=== PATIENT | female | born 1960 | race African-American/Black ===

== ENCOUNTER 2020-01-20 11:28 | Inpatient (IN) | payer OTHER ==
[~2020-01-20] VITALS: Ht 170.2 cm; Wt 49.7 kg
--- NOTE | ~2020-01-20 | O ---
[facility] [place] [address] OPERATIVE REPORT Name: DENNIS SALMERON Room #: 450-P [facility] IN M.R.#: [id number] Admission: 01/20/20 Attend Phys: Kinza Hamilton MD Discharge: Date of : 64 Report #: [id number] THIS REPORT FOR: cc: TONY Vera family physician/PCP TONY - Jody family physician/PCP Ludivina Solitario MD FACS ~ CC: Kinza JIMENEZ physician/PCP DATE OF SERVICE: 01/23/2020 PREOPERATIVE DIAGNOSES: 1. Severe protein-calorie malnutrition. 2. Intractable nausea and vomiting with intermittent intolerance to p.o. intake. 3. History of previous jejunostomy tube placement, now status post accidental removal and complete healing of her G-tube tract. 4. Unsuccessful attempts at percutaneous replacement by Interventional Radiology. POSTOPERATIVE DIAGNOSES: 1. Severe protein-calorie malnutrition. 2. Intractable nausea and vomiting with intermittent intolerance to p.o. intake. 3. History of previous jejunostomy tube placement, now status post accidental removal and complete healing of her G-tube tract. 4. Unsuccessful attempts at percutaneous replacement by Interventional Radiology. PROCEDURE PERFORMED: Laparoscopic-assisted placement of a jejunostomy tube placement. SURGEON: Ludivina Solitario MD THIRD SHIFT LIEUTENANT: JAY Le. ANESTHESIA: General endotracheal anesthesia. ESTIMATED BLOOD LOSS: Minimal (less than 5 mL). COMPLICATIONS: None appreciated. SPECIMENS: None. INDICATIONS: The patient is a 59-year-old -[place] female who initially underwent a laparoscopic sleeve gastrectomy, which was subsequently converted to [facility] [address] [place] [address] OPERATIVE REPORT Name: DENNIS SALMERON Room #: 450-P [facility] IN .R.#: [id number] Admission: 01/20/20 Attend Phys: Kinza Hamilton MD Discharge: Date of : 64 Report #: [id number] a Nitza-en-Y gastric bypass by another surgeon. The patient presented to [facility] with a longstanding history of intolerance to p.o. intake with severe protein-calorie malnutrition and after multiple providers were involved in her care, it was recommended for a jejunostomy tube placement. No gastrostomy tube could be placed due to the lack of gastric remnant since her bariatric procedure was converted from a sleeve gastrectomy to a Nitza-en-Y gastric bypass. After thorough consultation with the patient, she did undergo a laparoscopic-assisted jejunostomy tube placement that was uncomplicated and the patient did well. Unfortunately, approximately 3 months postoperatively, the patient had her jejunostomy tube fall out and when instructed to present for replacement, she delayed presentation for 2-3 weeks, thereby allowing her jejunostomy tube tract to completely epithelialize and close off. Multiple attempts by Interventional Radiology have been attempted all to no avail, and after thorough consultation once again, indication was for replacement laparoscopically today. The assistance of my nurse practitioner was paramount to the safe and successful completion of the procedure as she provided excellent retraction and exposure throughout the entirety of the case at a level that was well above a surgical lead. No qualified upper level resident assistance was available. DESCRIPTION OF PROCEDURE: After explaining the risks, benefits and alternatives of the procedure with the patient in detail and obtaining consent, the patient was brought to the operating room and placed supine on the operating room table. After conducting a thorough timeout procedure verifying correct patient and procedure, the patient was given general endotracheal anesthesia. Once adequate anesthesia was obtained, her SCDs were hooked up to pneumatic compression device. She was given a preoperative dose of antibiotics in line with the SCIP protocol. The patient's abdomen was prepped and draped in standard surgical sterile fashion. 5 mL of 0.5% Marcaine with epinephrine were used to anesthetize the skin in the right upper quadrant midclavicular line in the subcostal location. A #15 bladed scalpel was used to create a small skin yao at this location. A 5 mm Visiport was placed over and a 0-degree 5 mm laparoscope was introduced through this incision site. Once intra-abdominal placement was verified visually, the obturator with the trocar and laparoscope were both removed and the abdomen was insufflated to 15 mmHg using carbon dioxide gas. The laparoscope was changed to a 5-mm 30-degree laparoscope, which was reintroduced through this trocar. The entire abdomen was evaluated to ensure no injury upon entry. I now placed an additional 5 mm port in right lower quadrant under direct vision after anesthetizing the skin at that location with 5 mL of 0.5% Marcaine with epinephrine and created another small skin yao using a #15 bladed scalpel. The patient had a wall of adhesions down her midline; however, there was a passageway into the left upper quadrant where there was a window in the adhesions; we were able to traverse the laparoscope from the left lower quadrant after removing and placing the right lower quadrant trocar through this window for full visualization of the left upper quadrant prior jejunostomy tube site. Using a laparoscopic grasper through the right [facility] [address] [place] [address] OPERATIVE REPORT Name: DENNIS SALMERON Room #: 450-P [facility] IN M.Maninder.#: [id number] Admission: 01/20/20 Attend Phys: Kinza Hamilton MD Discharge: Date of : 64 Report #: [id number] upper quadrant trocar, we were able to maneuver through this window as well to assist in bowel placement and when the appropriate site was selected, a #15 bladed scalpel was used to create a 1 cm skin incision at the prior jejunostomy tube site. An 18-gauge needle was now placed through this tract directly into the loop of jejunum that was tenuously tethered to the abdominal wall. A wire was placed down this needle and intraluminal access was obvious as we could see it through the laparoscope. The needle was removed and a 24-Taiwanese tear-away sheath and dilator was placed over the wire and directed through this tract into the bowel lumen with care taken not to puncture through the bowel wall. When the tip of the tear-away sheath was in the bowel lumen, the dilator was removed along with the wire and a 20-Taiwanese balloon-tipped jejunostomy tube was placed down the tear-away sheath. Once the balloon tip of the tube was through the end of the dilator and we could identify this laparoscopically within the bowel lumen, the tear-away sheath was peeled away and the balloon was inflated with 6 mL of sterile water. This was obvious within the bowel lumen as well. Flushing the tube with 20 mL of normal saline showed distention of the bowel distally to distal to the tip of the tube, thereby confirming proper placement with no bleeding or spillage. As the bowel was tethered to the abdominal wall, no suturing was necessary at this juncture. I used a 2-0 nylon to close the skin incision up next to the tube and then passed this through the external flange of the tube where I then proceeded to tie it around the tube to anchor it into position. After I tied it down, I did flush the tube once again showing an easy flow again witnessed within the bowel lumen. Hemostasis was assured. The abdomen was fully desufflated. All trocars were removed under direct vision. A 4-0 Monocryl was used in a standard subcuticular fashion for skin and Dermabond glue was applied to the skin wound. At the end of the procedure, all instrument, needle and sponge counts were correct. The patient tolerated the procedure without incident, was awakened in the operating room, transitioned to the recovery room in stable condition with no apparent complications. By: [id number] Ludivina Solitario MD, FACS /nt
[2020-01-20 11:29] VITALS: BP 113/69
[2020-01-20 15:36] LABS: ABSOLUTE NEUTROPHILS 5.7 thou/uL (1.4-8.2); BASOPHILS 0.6 % (0.0-2.0); EOSINOPHILS 0.7 % (0.0-3.0); HEMATOCRIT 37.3 % (37.0-47.0); HEMOGLOBIN 12.2 gm/dL (12.0-15.0); LYMPHOCYTES 28.5 % (24.0-44.0); MCH 31.7 pg (26.0-34.0); MCHC 32.8 g/dL (28.0-37.0); MCV 96.7 fL (80.0-100.0); MONOCYTES 8.9 % (1.0-8.0); PLATELET COUNT 496 thou/uL (150-400); POLYS 61.3 % (36.0-66.0); RBC 3.85 mil/uL (4.20-5.00); RDW 17.2 % (10.5-14.5); WBC 9.4 thou/uL (4.0-11.0)
[2020-01-20 15:52] LABS: CALCIUM 9.1 mg/dL (8.5-10.1); CREATININE 0.8 mg/dL (0.6-1.0); POTASSIUM 3.5 mmol/L (3.5-5.1)
[2020-01-20 15:58] LABS: ALBUMIN 3.5 g/dL (3.4-5.0); TOTAL BILIRUBIN 0.3 mg/dL (0.2-1.0); TOTAL PROTEIN 7.7 g/dL (6.4-8.2)
[2020-01-20 20:13] VITALS: BP 105/42
[2020-01-20] MEDS ORDERED: NORCO 10-325 T1 EACH PO (20:16)
[2020-01-20] MEDS ORDERED: MORPHINE SULFAT15 MG PO (20:16)
[2020-01-20] MEDS ORDERED: LORAZEPAM 0.50.5 MG PO (20:17)
[2020-01-20] MEDS ORDERED: HYDROXYZINE HCL10 M2 PO (20:18)
[2020-01-20] MEDS ORDERED: GRALISE600 MG PO (20:18)
--- NOTE | 2020-01-20 20:46 | NUR ---
ATTEMPTED TO CALL REPORT TO 4W. NO ANSWER AT DESK.
[2020-01-20 21:16] VITALS: BP 99/42
[2020-01-20 21:40] VITALS: BP 116/62
--- NOTE | 2020-01-21 03:21 | NUR ---
pt arrived to unit approx 2130 from ER. pt alert and oriented x4, appropriate and cooperative. pt oriented to room. pt up to bathroom to void. pt with no more nausea and/or vomiting. pt given pain med as ordered. pt ate food before midnight, now NPO as instructed. pt appears to be sleeping soundly. call light in reach. will continue to monitor.
[2020-01-21 03:58] VITALS: BP 117/74
[2020-01-21 06:23] LABS: HEMOGLOBIN 10.5 gm/dL (12.0-15.0); MCH 31.9 pg (26.0-34.0); MCHC 32.9 g/dL (28.0-37.0); MCV 97.1 fL (80.0-100.0); RBC 3.3 mil/uL (4.20-5.00); WBC 7.3 thou/uL (4.0-11.0)
[2020-01-21 06:42] LABS: CALCIUM 8.3 mg/dL (8.5-10.1); CREATININE 0.8 mg/dL (0.6-1.0); MAGNESIUM 2.2 mg/dL (1.8-2.4); POTASSIUM 3.5 mmol/L (3.5-5.1)
[2020-01-21 09:50] VITALS: BP 119/64
[2020-01-21] MEDS ORDERED: ROCEPHIN 11 GM/1001 IV (10:33)
[2020-01-21] MEDS ORDERED: VANCOMYCIN1 GM/2002 IV (10:33)
--- NOTE | 2020-01-21 11:43 | NUR ---
ASSUMED CARE AT 0700. PATIENT IS ALERT AND ORIENTED X4. PATIENT FUENTES'S, CADDY PACKER ARE EQUAL. LUNGS ARE CLEAR. PATIENT ABD IS SOFT. IVF INFUSING AT 75 CC/HR. PER S.L. IN PATIENT'S LEFT AC. PATIENT IS NPO FOR I.R. TO PUT J TUBE BACK IN. DENIES PAIN AT THIS TIME. PATIENT IS UP AD YOMI. BS 85 BY LAB. I.R. TEAM HERE TO TAKE PATIENT IN HER BED. WILL REEVAL AFTER PROCEDURE.
--- NOTE | 2020-01-21 11:46 | NUR ---
0930 RETUREND FROM I.R. PROCEDURE FAILED. REMAINS NPO UNTIL SEEN BY SURG. CONTINUES ON IV FLUIDS D51/2 NS AT 75 CC/HR.
--- NOTE | 2020-01-21 11:47 | NUR ---
PATIENT DIET RESUMED PLAN FOR SURG ON 01/23/20 FOR J TUBE REPLACEMENT. C/O ABD PAIN. MEDICATED WITH MS04 IVP AT 0947 A.M. PATIENT GIVEN TOAST AND PEANUT BUTTER. PATIENT IS NOW NAUSATED. MEDICATED WITH PRN ANTI-EMETIC. WILL CONTINUE TO MONITER.
[2020-01-21 13:21] LABS: URINE BILIRUBIN NEGATIVE (Negative); URINE BLOOD NEGATIVE (Negative); URINE CLARITY CLEAR; URINE GLUCOSE-RANDOM* NEGATIVE (Negative); URINE KETONES NEGATIVE (Negative); URINE LEUKOCYTES-REFLEX NEGATIVE (Negative); URINE NITRITE-REFLEX NEGATIVE (Negative); URINE PROTEIN (DIPSTICK) TRACE (Negative); URINE SPECIFIC GRAVITY >= 1.030 (1.005-1.035); URINE UROBILINOGEN 0.2 E.U./dl (0.2-1.0)
[2020-01-21 13:23] LABS: URINE COLOR AMBER
--- NOTE | 2020-01-21 13:34 | NUR ---
Once PEJ replaced and able to use, recommend initiate Vital AF 1.2 @80mL/hr with 60mL water flushes q4hr. Administer feeds continuously x 12 hours from [id number].
[2020-01-21 14:33] VITALS: BP 110/58
--- NOTE | 2020-01-21 14:49 | NUR ---
PT ADMITTED RELATED TO INTRACTABLE VOMITING AND J TUBE FALLING OUT. CM REVIEWED CHART AND SPOKE WITH CARE TEAM. CM CALLED AND SPOKE WITH PT OVER THE PHONE THIS AM BUT PT WAS ANNOYED BECAUSE HER CELL PHONE WAS GOING TO AND SHE NEEDED TO GET SOME NUMBERS OFF IT AND ASKED THAT CM CALL BACK. CM CALLED BACK AND SHE INDICATED THAT SHE RESIDES IN AN APARTMENT WITH HER DTRS AND GRANDKIDS. SHE INDICATED THAT THERE ARE 4 STEPS TO ENTER AND NONE INSIDE. 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 PT INDICATED SHE OCCASIONALLY NEEDS ASSIST WITH ADLS. CM CALLED PT'S BACK TO SEE WHO SHE HAD ENTERAL TUBE FEEDING SUPPLIES THRUOUGH ACOUST[employer] AND SHE YELLED AT CM TO STOP CALLING AND WAKEING HER UP ASK THE INSURANCE. CM CALLED SON EMIR LISTED WHO LIVES IN [place] [facility]. HE HAD NO IDEA AND WAS GOING TO ASK PT'S DTR. CM TO FOLLOW INDICATED WITH DC PLANNING. PT HAD GONE DOWN TO GET J TUBE REPLACED THIS AM AND IT COULDN'T BE DONE. PT IS NOW TO HAVE SURGERY SUNDAY.
[2020-01-21 19:32] VITALS: BP 116/69
--- NOTE | 2020-01-22 00:53 | NUR ---
NIPPLE THREADER CALLED, PT TO REMAIN ON UNIT PER RASHIDA SOLORZANO. SEE NIPPLE THREADER CHARTING.
[2020-01-22 02:20] LABS: CALCIUM 8.8 mg/dL (8.5-10.1); CREATININE 0.8 mg/dL (0.6-1.0); MAGNESIUM 2.1 mg/dL (1.8-2.4); POTASSIUM 3.6 mmol/L (3.5-5.1)
--- NOTE | 2020-01-22 02:41 | NUR ---
RECEIVED THE PT IN BED SLEEPING. PT REFUSED ANY ASSESSMENTS SAYING THAT "THERE'S NOTHING TO LOOK AT" EXPLAINED THE IMPORTANCE OF ASSESSMENTS TO BETTER TAKE CARE OF PT, STILL REFUSED AND ONLY WANTED PAIN AND NAUSEA MEDS. AROUND MIDNIGHT, PT CALLED OUT AND REQUESTED PAIN MEDS. HOWEVER, PT IV HAS BEEN COMPROMISED AND TOLD THE PT THAT IV MEDS CANNOT BE ADMINISTERED. PT SAID PT WILL ONLY ALLOW US GUIDED IV INSERTION, EXPLAINED TO PT THAT US GUIDED IV INSERTION IS NOT AVAILABLE AT THE TIME. PT GOT VERY UPSET AND DID NOT ALLOW IV INSERTION ATTEMPTS. SUDDENLY PT SAID PT HAD CHEST PAIN. GEODETIC SURVEYOR TECHNOLOGIST ACTIVATED AND DOCUMENTED PER HOUSE SUP COURSE OF GEODETIC SURVEYOR TECHNOLOGIST. PT WAS SEEN BY TERRITORY ACCOUNT MANAGER VICE CHAIRMAN AT BEDSIDE. WHEN CHEST PAIN WAS REPORTED, PT REFUSED VITAL SIGNS AND FSBS TOLD NURSING STAFF "YOU GOT TO BE OUT OF YOUR FUCKING MIND" REFUSING CARE, REFUSING TO ANSWER ASSESSMENTS QUESTIONS. AFTER GEODETIC SURVEYOR TECHNOLOGIST ARRIVED PT ALLOWED SPECIFIC TASKS TO BE RENDERED. NO RELIEF OF CHEST PAIN WITH NITROGLYCERIN, WHEN OFFERED FOR ANOTHER DOSE AFTER 5MINS, PT REFUSED MEDS AND FURTHER EVALUATION OF VITAL SIGNS AND ASSESSEMTNS. ER NURSE WAS ABLE TO INSERT EJ AND PT WAS FINALLY MEDICATED FOR PAIN AND NAUSEA NOW RESTING IN BED. WILL CONT TO MONITOR FOR ANY CHANGES IN CONDITION.
[2020-01-22 05:30] VITALS: BP 142/60
[2020-01-22 07:15] VITALS: BP 134/58
--- NOTE | 2020-01-22 10:28 | NUR ---
PT A&OX4, IRRITABLE. PATIENT C/O NAUSEA, MEDICATION GIVEN. PATIENT REFUSED BLOOD SUGAR CHECK AND FULL BODY ASSESSMENT. I WAS ABLE TO LISTEN TO HEART AND LUNGS. PATIENT BREATHING CLEAR AND NO SIGNS OF DISTRESS OBSERVED. WILL CONTINUE TO MONITOR.
--- NOTE | 2020-01-22 12:17 | EKG ---
[facility] [place] [address] ELECTROCARDIOGRAM REPORT Name: DENNIS SALMERON Room #: 450-P ADM IN M.R.#: [id number] Admission: 01/20/20 Attend Phys: Kinza Hamilton MD Discharge: Date of : 64 Report #: [id number] THIS REPORT FOR: cc: TONY - Jody family physician/PCP TONY - Jody family physician/PCP Juan Manuel Guillory MD [facility] ~ THIS REPORT FOR: //name// [facility] Test Date: 2020-01-22 Test Time: 00:32:58 Pat Name: DENNIS SALMERON Department: Room: 450 P Gender: F Safety Engineer Pressure Vessels: [id number] : 1960 Requested By: Tawanna Dyer Order Number: [id number] MD: Juan Manuel Guillory Measurements Intervals [place] Rate: 63 P: 19 W[place]: 180 QRS: 37 QRSD: 74 T: 73 QT: 406 QTc: 416 Interpretive Statements Sinus rhythm Low voltage, extremity leads Minimal ST elevation, inferior leads No previous ECG available for comparison Electronically Signed On 01-22-2020 12:17:42 MARKETING RECRUITER by Juan Manuel Guillory [email or web address] <ELECTRONICALLY SIGNED> By: Juan Manuel Guillory MD, FACC 01/22/20 1217 Juan Manuel Guillory MD, [facility] /EPI
--- NOTE | 2020-01-22 13:22 | NUR ---
VAT NURSE SPOKE TO THIS PATIENTS NURSE THIS AM. THE PATIENT CURRENTLY HAS A PIV AND A PICC LINE IS NOT NEEDED AT THIS TIME
--- NOTE | 2020-01-22 13:59 | NUR ---
CARE TEAM INDICATED THAT PT IS TO HAVE LAP REPLACEMENT OF HER J TUBE TOMORROW Sunday01/22/20. CM TO FOLLOW INDICATED WITH DC PLANNING. PT GETS HER ENTERAL TUBE FEEDING AUPPLIES THROUGH [facility] AND SHE INDICATED THAT SHE HAS SUPPLIES AND A PUMP AT HOME ALREADY. PT IS RATHER IRRITABLE. CM TO FOLLOW INDICATED WITH DC PLANNING.
[2020-01-22 20:00] VITALS: BP 132/64
[2020-01-23 07:04] VITALS: BP 171/83
--- NOTE | 2020-01-23 07:45 | NUR ---
progress pt a/o x4 refuses some cares acuchecks, vital signs full body assessment. mdid allow me to take vitals and listen to heart lungs abdomen having periods of vomiting but none visualized. zofran, and compazine given for nausea with effect morphine given for pain pt got some relief. plan is to have j tube replaced by surgery today npo since midnight. continue to monitor.
--- NOTE | 2020-01-23 10:20 | NUR ---
Nutrition: Following J tube replacement, rec nocturnal tube feeds of Vital AF at 80 mL/hr x 12 hrs over night. If pt not eating any meals, Run x 24 hrs daily at 55 Ml/hr.
[2020-01-23 12:32] VITALS: BP 131/73
[2020-01-23 14:36] VITALS: BP 153/76
--- NOTE | 2020-01-23 15:20 | NUR ---
PT A&OX4, VSS, PAIN IN ABDOMEN. PATIENT HAD SURGERY TODAY, J TUBE REPLACEMENT. PAIN MEDICATION GIVENT TO PATIENT. DRESSING PLEACED AROUND J TUBE FOR SEROSANGUINEOUS DRAINAGE. PT MORE COOPERATIVE TODAY. PATIENT ATE 25 PERCENT OF LUNCH. NAUSEA NO VOMITING. NO SIGNS OF DISTRESS. WILL CONTINUE TO MONITOR.
[2020-01-23 15:42] VITALS: BP 153/76
--- NOTE | 2020-01-23 15:43 | NUR ---
PT HAD JTUBE REPLACE TODAY TO RESUME TUBE FEEDING TOMORROW. PT HAD BEEN ON SERVICES WITH [facility] FOR ENTERAL TUBE FEEDING SUPPLIES FOREST PATHOLOGIST. PT HAS PUMP AND POLE AT HOME LAST DELIVERY OF 2 RAFA HN TO LAST THOUGH 01/25. RUN RATE WAS 60ML OVER 12 HRS. PHYSICIAN INDICATED POSSIBLE DC HOME SUNDAY. PT INDICATED SHE DIDN'T WANT HOME HEALTH SERVICES UPON DISCHARGE. PLEASE FAX BANG GOULD AND ORDERS TO [facility] AT .
[2020-01-23 19:30] VITALS: BP 139/78
--- NOTE | 2020-01-23 22:29 | NUR ---
Care assumed of patient at 1915: Patient resting quietly in bed at start of shift. Reported abdominal pain rated 2/10. Denies nausea/vomitting. Refused accucheck this shift. Refused HS dose of Sucralfate. Education provided on medication use, continued to decline. Up to use bedside commode with SBA x1. R EJ present, fluids infusing. Dressing to abdomen j-tube clean, dry and intact. Reported increased pain around 2205 and requested pain medication. Administered PRN Morphine IV. Re-positioned in bed on right side. Patient resting quietly at this time.
[2020-01-24 08:30] VITALS: BP 113/70
--- NOTE | 2020-01-24 08:30 | NUR ---
PT FRUSTRATED SAYING SHE DIDN'T GET HER SAUSAGE THIS AM WITH BREAKFAST. PT CALLED KITCHEN AND WANTED HER SAUSAGE, THEN PT UPSET DUE TO THIS MANAGER HRIS WANTING TO GET HER VS. PT STATED WHY IS IT THAT EVERY TIME I GET MY FOOD YOU GUYS ARE TAKEN MY VS AND THEN MY FOOD GETS COLD AND I HATE MICROWAVE FOOD. SHE SAYS AT HOME THEY KEEP THE OVEN ON LOW DUE TO IF SHE DOESN'T EAT VERY MUCH THEN THEY CAN REHEAT IT. PT ALSO STATED THAT THE IV TEAM WAS SUPPOSED TO START HER IV AT 0800. PT DRESSING D/I TO LEFT QUAD.
--- NOTE | 2020-01-24 09:47 | NUR ---
TOLD IV NURSE ABOUT PT, SHE HAS SOME IV TO START IN ER AND ICU AT THIS TIME.
--- NOTE | 2020-01-24 10:00 | NUR ---
PT ASKED ABOUT IV NURSE, TOLD HER WE PAGED HER. ASSISTED PT TO BATHROOM, PT HAS STEADY GAIT. PT WANTED PEPPER FOR HER COTTAGE CHEESE.
--- NOTE | 2020-01-24 10:10 | NUR ---
DR. ROMAN STATED THAT ASK SURGERY IF SHE CAN START TUBE FEEDING EARLY, SHE NEEDS TO TAKE MEDS VIA MOUTH.
--- NOTE | 2020-01-24 10:38 | NUR ---
DR. SAGE SEEN PT AND STATED OK TO START HER FEEDINGS AND HE ORDERED PAIN MED VIA TUBE.
--- NOTE | 2020-01-24 11:41 | NUR ---
ADM HYDROCODONE 7.5MG ELIXER TO PEG TUBE. NO RESIDUAL FROM PEG TUBE. PT TOLERATED WELL ON PAIN MED. PT STATED PAIN IS 6 ON 1-10 SCALE AND FEELS LIKE A ACHE. CHANGED DRESSING TO PEG TUBE ALSO, DARK DRIED FLUID ON GAUZE, DID HAVE SLIGHT LEAKING FROM INSERTION SITE.
[2020-01-24] MEDS ORDERED: JEVITY 1.5 CAL237 ML (11:47)
[2020-01-24 14:08] LABS: RBC 3.83 mil/uL (4.20-5.00)
[2020-01-24 14:11] LABS: HEMATOCRIT 36.8 % (37.0-47.0); HEMOGLOBIN 11.8 gm/dL (12.0-15.0); MCH 30.7 pg (26.0-34.0); MCHC 32.1 g/dL (28.0-37.0); MCV 95.9 fL (80.0-100.0); RDW 17.1 % (10.5-14.5); WBC 16.8 thou/uL (4.0-11.0)
[2020-01-24 14:19] LABS: CALCIUM 9.5 mg/dL (8.5-10.1); POTASSIUM 3.9 mmol/L (3.5-5.1)
--- NOTE | 2020-01-24 15:38 | NUR ---
ADM HYDROCODONE ELIXER 15ML FOR PAIN TO ABD.
--- NOTE | 2020-01-24 15:48 | NUR ---
STARTED TUBE FEEDING AT THIS TIME. JEVITY 1.5 AND RATE 30ML/HR CONT. PT STATED HER STARTED HER AT 50ML/HR.
--- NOTE | 2020-01-24 16:53 | NUR ---
PT TOLERATING FEEDING SO FAR.
[2020-01-24 17:20] VITALS: BP 85/52
[2020-01-24 20:00] VITALS: BP 110/65
--- NOTE | 2020-01-25 04:41 | NUR ---
ASSUMED PT'S CARE @ 1900. PT ALERT AND ORIENTED. VSS ON RA. MEDS GIVEN PER EMAR. CAN GET IRRITABLE AND FRUSTRATED. PRN PAIN MED GIVEN PER TUBE PER PT'S PREFERENCE. GENERAL SURGERY CALLED FOR DIET ORDERS NO DIET ORDER EXCEPT FOR TUBE FEEDING WAS ACTIVE. PT HAD JEVITY 1.5 INFUSING AT GOAL RATE OF 45ML/HR. PT TOLERATING. PT REMAINS WITH NO IV ACCESS. PT CALLED NURSING TO VOICE THAT SHE WAS BLEEDING FROM HER VAGINAL AREA WHEN SHE WIPED. NURSING ASSESSED VAGINAL AREA, NO WOUNDS NOTED REMAINED INTACT. NURSING WIPED PT TO ASSESS FOR BLEEDING, NONE NOTED. PT TOOK WIPE INSERTED IT A LITTLE INTO HER VAGINA AND WIPED IT VIGOROUSLY. THERE WAS VERY TINY SPOT OF RED COLORATION ON WIPE, WHICH MAY BE DUE TO HOW VIGOROUSLY SHE WIPED. PT INFORMED TO NOTIFY NURSING NEXT TIME SHE WIPES AND NOTICES BLOOD. PT IN AGREEMENT. ANTICIPATED DC TO HOME TODAY. CALL LIGHT WITHIN REACH. WILL CONTINUE TO MONITOR.
[2020-01-25 12:31] VITALS: BP 94/62
[2020-01-25] MEDS ORDERED: NORCO 10-325 T1 EACH PO (14:18)
[2020-01-25] MEDS ORDERED: ATIVAN1 M1 PO (14:20)
[2020-01-25] MEDS ORDERED: HYDROCODONE-ACE15 ML PER TUBE (14:20)
[2020-01-25] MEDS ORDERED: OXYCONTIN15 MG PO (14:20)
== END 2020-01-25 14:25 | disposition home or self-care (01) | DRG 344 ==
LOC: ER 11:28 → EROBS 19:30 → 4W 19:30
PROVIDERS: Internal Medicine; Nurse Practitioner; Nurse Practitioner Family; Physician Assistant; ADMIT Hospitalist; ATTEND Hospitalist
PROC: 0DHA4UZ Insertion of Feeding Device into Jejunum, Percutaneous Endoscopic Approach (ICD-10-PCS; principal; 2020-01-23)
PROC: 0DPD4UZ Removal of Feeding Device from Lower Intestinal Tract, Percutaneous Endoscopic Approach (ICD-10-PCS; principal; 2020-01-23)
DX: K94.13 Enterostomy malfunction (principal); E43 Unspecified severe protein-calorie malnutrition; Z68.1 Body mass index [BMI] 19.9 or less, adult; Y83.8 Other surgical procedures as the cause of abnormal reaction of the patient, or of later complication, without mention of misadventure at the time of the procedure; Y82.8 Other medical devices associated with adverse incidents; F17.210 Nicotine dependence, cigarettes, uncomplicated; J45.909 Unspecified asthma, uncomplicated; I10 Essential (primary) hypertension; E78.5 Hyperlipidemia, unspecified; G89.29 Other chronic pain; Z85.43 Personal history of malignant neoplasm of ovary; Y92.89 Other specified places as the place of occurrence of the external cause; Z85.42 Personal history of malignant neoplasm of other parts of uterus; Z90.49 Acquired absence of other specified parts of digestive tract; Z98.84 Bariatric surgery status
CPT/HCPCS: 10047; 50010; 50101; 50386; 50555; 50781; 50962; 51620; 52265; 53307; 54118; 56525; 56526; 57092; 62110; 62900; 70005